=== PATIENT | female | born 1970 | race Native Hawaiian/Other Pacific Islander ===

== ENCOUNTER 2021-08-09 21:29 | Inpatient (IN) | payer SELFPAY ==
[2021-08-09 22:18] LABS: Basophils % (Auto) 0.6 % (0.0-1.8); Eosinophils # (Auto) 0.1 K/mm3 (0.0-0.4); Eosinophils % (Auto) 1.5 % (0.0-4.3); Hematocrit 37.2 % (30.3-42.9); Lymphocytes # (Auto) 3.3 K/mm3 (1.2-5.4); Lymphocytes % (Auto) 42.9 % (13.4-35.0); Mean Corpuscular HGB Conc 32 % (30-34); Mean Corpuscular Volume 91 fl (79-97); Monocytes # (Auto) 0.6 K/mm3 (0.0-0.8); Monocytes % (Auto) 8.3 % (0.0-7.3); Platelet Count 298 K/mm3 (140-440); Red Cell Distribution Width 13.6 % (13.2-15.2)
--- NOTE | 2021-08-09 22:24 | Consultation ---
Medications and Allergies Allergies Allergy/AdvReac Type Severity Reaction Status Date / Time No Known Allergies Allergy Unverified 02/25/14 12:06 Home Medications Medication Instructions Recorded Confirmed Last Taken Type Gabapentin 300 mg PO BID #60 capsule 02/26/14 Unknown Rx Physical Examination - Vital Signs Vital Signs: Vital Signs Temp Pulse Resp BP Pulse Ox 97.9 F 80 20 143/102 98 08/09/21 21:33 08/09/21 21:33 08/09/21 21:33 08/09/21 21:33 08/09/21 21:33 Results - Laboratory Findings CBC and BMP: 08/09/21 22:02 Abnormal Lab Findings: Abnormal Labs 08/09/21 22:02 Lymph % (Auto) 42.9 H [place] % (Auto) 8.3 H Assessment and Plan [place] [facility] Consult Note # Demographics Consult Type: Acute Stroke Level 1 (0-4.5 hrs) Patient Location: Emergency Room First Name: Sury Last Name: Jer Date of : 1970 Age: 50 Gender: Female Facility: [facility] Time of Initial Page (Eastern Time): 08/09/2021, 21:34 Time of Return Call (Eastern Time): 08/09/2021, 21:38 # HPI Chief Complaint: numbness weakness (focal) Handedness: Right History: Left-sided weakness and numbness starting at 17:00. Hisotry of stroke, HTN, diverticulitis. History of stroke 10 years ago. Last Known Normal: I have collected independent history specific to time last normal or last known well. We have collaborated with the provider and at this time, we have the most current timeline with the information that is available. 1700 Possible Thrombolytic candidate: not on warfarin or NOACs no intracranial hemorrhage history no recent major surgery no known active major internal bleeding no known blood disorders # Scores Time of exam and NIHSS ( Time): 08/09/2021, 21:45 Level of Consciousness 1a: [0] = Alert; keenly responsive LOC Questions 1b: [0] = Answers both questions correctly LOC Commands 1c: [0] = Performs both tasks correctly Best Gaze 2: [0] = Normal Visual 3: [0] = No visual loss Facial Palsy 4: [1] = Minor paralysis Motor Arm Left 5a: [1] = Drift Motor Arm Right 5b: [0] = No drift Motor Leg Left 6a: [0] = No drift Motor Leg Right 6b: [0] = No drift Limb Ataxia 7: [0] = Absent Sensory 8: [1] = [id number] sensory loss Best Language 9: [0] = No aphasia Dysarthria 10: [0] = Normal Extinction and Inattention 11: [0] = No abnormality NIHSS Total: 3 # PMH-FH-SH Medications: Amlodipine, Bisoprolol # Assessment Impression: Ischemic Stroke (Acute) Left-sided weakness and numbness consistent with acute stroke. # Plan Thrombolytic/Intervention: NOT IV Thrombolysis or IA Intervention candidate Thrombolytic Exclusion: > 4.5 hours Intraarterial Exclusion: other CTA pending, call back if abnormal Target Blood Pressure: SBP < 220 Labs: hemoglobin A1c lipid panel Imaging: (urgency: STAT): CT Angiogram Head and CT Angiogram Neck AND call back with results if abnormal Imaging: (urgency: routine): MRI Brain with AND without contrast Diagnostic Test: echo with bubble study Therapy/Evaluation: NPO until swallow evaluation PT/OT evaluation speech/swallow consultation Medication: clopidogrel (Plavix) 75 mg daily (trial of Plavix due to ASA intolerence) DVT Prophylaxis: SCD chemical DVT prophylaxis Other: LDL < 70 permissive hypertension telemetry monitoring I have discussed my recommendations with the referring provider Additional Recommendations: Trial of Plavix given aspirin intolerance Disposition: admit # Logistics Telemedicine: Interactive 2 way audio and visual telecommunication technology was utilized during this visit
[2021-08-09 22:28] LABS: INR 1.02 (0.87-1.13)
[2021-08-09] MEDS ORDERED: SODIUM CHLORIDE 0.9% 1000 ML 1,000 ML IV ONE (22:28)
[2021-08-09 22:29] LABS: Partial Thromboplastin Time 28.7 Sec. (24.2-36.6); Thrombin Time 18.6 Sec. (15.1-19.6)
--- NOTE | 2021-08-09 22:29 | Emergency Department Report ---
HPI - General Chief Complaint: Neuro Symptoms/Deficit Time Seen by Provider: 08/09/21 21:39 - HPI HPI: 50-year-old female with past medical history significant for hypertension, history of diverticulitis, and prior CVA 10 years ago with no residual deficits presents complaining of left-sided numbness, weakness, as well as left-sided pain which started at 5 PM but worsened over the past 2 hours. According to the patient, she says that for the past week she has been experiencing left-sided abdominal pain, nausea, generalized malaise and some intermittent chest pain lasting 1 to 2 minutes at a time. She was last known well at 5 PM, after which she was noted to have weakness and worsening pain of the entire left side of her body and face. This worsened over the past 2 hours which prompted her to come to the emergency department. There are no known aggravating or alleviating factors. She has not taken anything for her symptoms. At present she reports generalized weakness, malaise, and L-sided abdominal pain in addition to the neurologic symptoms. She does say that the vision in her left eye seems slightly blurry. She denies fever/chills, chest pain, shortness of breath, cough, melena, dysuria, discharge, rash, or any other symptoms or complaints. ED Past Medical Hx - Past Medical History Hx Hypertension: Yes Hx CVA: Yes Additional medical history: Right side weakness from previous cva. - Social History Smoking Status: Never Smoker - Medications Home Medications: Home Medications Medication Instructions Recorded Confirmed Last Taken Type Gabapentin 300 mg PO BID #60 capsule 02/26/14 Unknown Rx ED Review of Systems ROS: Stated complaint: Left Sided Weakness Other details as noted in HPI Constitutional: malaise, weakness. denies: chills, fever Eyes: vision change. denies: eye pain ENT: denies: throat pain, congestion Respiratory: denies: cough, shortness of breath Cardiovascular: chest pain. denies: palpitations, syncope Gastrointestinal: abdominal pain, nausea, diarrhea. denies: vomiting, melena Genitourinary: denies: dysuria, frequency Musculoskeletal: denies: back pain, joint swelling Skin: denies: rash, lesions Neurological: weakness, numbness. denies: headache, confusion Psychiatric: denies: anxiety, depression Physical Exam - Physical Exam Vital Signs: Vital Signs 12/02/21 21:33 Temperature 97.9 F Pulse Rate 80 Respiratory 20 Rate Blood Pressure 143/102 [Left] O2 Sat by Pulse 98 Oximetry Physical Exam: GENERAL: Well developed and well nourished. No acute distress HEAD: Normocephalic. No obvious signs of trauma. ENT: Dry mucous membranes. EYES: Extraocular movements are intact. Pupils are equal round and reactive to light bilaterally NECK: Supple. Full ROM is intact. Trachea is midline. LUNGS: Nonlabored breathing. Equal chest rise bilaterally. Clear to auscultation bilaterally. CARDIOVASCULAR: Regular rate and rhythm. No murmurs or rubs. VASCULAR: Cap refill < 2 seconds ABDOMEN: Abdomen is soft and nondistended. There is tenderness of the left upper and lower quadrants of the abdomen without guarding or rebound tenderness. SKIN: Skin is warm and dry NEURO: Patient is awake, alert, and oriented. There is left-sided facial droop involving the lower aspects of the face without involvement of the upper aspects, otherwise cranial nerves are intact. There is decreased sensation to light touch noted throughout the entire left side of the body and face. There is weakness of the left upper and lower extremities but no drift on exam. Normal speech. NIHSS 2 MUSCULOSKELETAL: No obvious deformities. No significant tenderness. Normal ROM t hroughout. BACK/SPINE: No midline tenderness or step-offs of the C/T/L spine. No costovertebral angle tenderness. ED Course Vital Signs 08/09/21 21:33 Temperature 97.9 F Pulse Rate 80 Respiratory 20 Rate Blood Pressure 143/102 [Left] O2 Sat by Pulse 98 Oximetry ED Medical Decision Making - Lab Data Result diagrams: 08/09/21 22:02 08/09/21 22:02 - EKG Data -: EKG Interpreted by Ne - EKG Data 08/09/21 22:57 Normal sinus rhythm. Normal axis. Normal intervals. No ectopy. No significant ST segment or T wave abnormalities. - Medical Decision Making 50-year-old female with history of stroke and prior diverticulitis presenting with acute onset left-sided facial weakness as well as left-sided numbness of the entire body and left-sided weakness of the body as well. She is also experiencing pain of the left side of her body. Last known normal time was at 5 PM today. In addition she has been experiencing 1 week of intermittent chest pain and left-sided abdominal pain as well as malaise and generalized weakness. On initial assessment she is afebrile and with normal vital signs other than elevated blood pressure. Physical examination reveals dry mucous membranes. There is left-sided facial droop involving the lower aspects of the face. There is decreased sensation to the light touch noted to the entire left side of the face and body. There is weakness of the left upper and lower extremities but no drift. There is also tenderness to palpation of the left upper and lower quadrants of the abdomen without guarding or rebound. Stroke alert was ini tiated and ordered including Noncon CT of the head and CT angiogram of the head and neck. We will also obtain CT of the abdomen as well as further cardiovascular work-up. We will give 1 L of IV fluids for now and continue to monitor very closely. On repeat assessment at 10:27 PM, the patient is noted to have significant improvement of her left facial droop and of her numbness/weakness throughout. We will continue to monitor closely. At 10:46 PM I received a call from radiology who reports that Noncon CT of the head as well as CT angio of the head and neck are negative for any acute abnorm alities. I spoke with Dr. Mccormack of teleneurology regarding the case and he recommends administration of Plavix 75 mg and admission for MRI. Chest x-ray reveals no acute abnormalities. Labs reveal no significant leukocytosis or anemia. There are no significant electrolyte abnormalities and kidney functions within normal limits although BUN is slightly elevated consistent with dehydration. Initial troponin is negative. CT of the abdomen pelvis reveals no acute abnormalities. All the findings were discussed with the patient including the need for admission for further work-up and management given the patient's acute neurologic deficits. The patient expressed understanding and agreement with the plan of care. At 11:37 PM I spoke with Dr. Colin, the on-call hospitalist regarding the case. He accepts patient for admission and will assume care. Critical Care Time: Yes Critical care time in (mins) excluding proc time.: 35 Critical care attestation.: If time is entered above; I have spent that time in minutes in the direct care of this critically ill patient, excluding procedure time. Critical care time was spent in the evaluation/assessment, work-up, and management of acute stroke requiring stroke alert and discussion with multiple other providers as well as frequent reevaluation and reassessment. ED Disposition Clinical Impression: Stroke, Chest pain, Left sided abdominal pain, Dehydration Disposition: 09 ADMITTED INPATIENT Is pt being admited?: Yes Condition: Stable - Assessment Assessment Interval: Baseline - Level of Consciousness 1a. Level of Consciousness: alert/keenly responsive - LOC Questions 1b. LOC Questions: answers both correctly - LOC Command 1c. LOC Commands: performs tasks correctly - Best Gaze 2. Best Gaze: normal - Visual 3. Visual: no visual loss - Facial Palsy 4. Facial Palsy: minor paralysis - Motor Arm 5a. Motor Arm Left: no drift 5b. Motor Arm Right: no drift - Motor Leg 6a. Motor Leg Left: no drift 6b. Motor Leg Right: no drift - Limb Ataxia 7. Limb Ataxia: absent - Sensory 8. Sensory: mild/moderate sensory loss - Best Language 9. Best Language: no aphasia - Dysarthria 10. Dysarthria: normal - Extinction and Inattention 11. Extinction/Inattention: no abnormality - Scoring Total Score: 2 Stroke Severity: Minor Stroke
[2021-08-09 22:38] LABS: Alanine Aminotransferase 15 units/L (7-56); Albumin 3.6 g/dL (3.9-5); Blood Urea Nitrogen 19 mg/dL (7-17); Calcium 8.4 mg/dL (8.4-10.2); Hemolysis Index 10
--- NOTE | 2021-08-09 22:41 | XRay Report ---
CHEST 1 VIEW 08/09/2021 10:17 PM INDICATION / CLINICAL INFORMATION: Stroke. Left sided weakness and numbness. COMPARISON: None available. FINDINGS: SUPPORT DEVICES: None. HEART / MEDIASTINUM: The heart size and pulmonary vasculature are normal. The aorta is normal in [place]. LUNGS / PLEURA: No significant pulmonary or pleural abnormality. No pneumothorax. ADDITIONAL FINDINGS: There is mild elevation of the right hemidiaphragm laterally. IMPRESSION: No acute findings. Signer Name: Fernando Mcintyre MD Signed: 08/09/2021 10:37 PM Workstation Name: [id number]
--- NOTE | 2021-08-09 22:49 | Cat Scan Report ---
CT angio head, CT angio neck, CT head/brain wo con HISTORY:stroke COMPARISON: None. TECHNIQUE: CT of the head. CTA of the neck and head is performed after IV contrast. 3-D/MIP reformats were postprocessed. Percentage stenosis is determined by direct quantitative measurements of diseas ed internal carotid artery diameter compared with normal distal internal carotid artery reference seg ments or by criteria similar to NASCET where applicable. All CT scans at this location are performed using CT dose reduction for ALARA by means of automated exposure control. FINDINGS: CT HEAD: Intracranial: Rent[place]-white matter differentiation is maintained. No intracranial hemorrhage. No extra a xial collection.. No hydrocephalus. No herniation. Sinuses: Paranasal sinuses and mastoid air cells are essentially clear. Orbits: Globes are intact. Calvarium: No acute fracture. CTA NECK: Aortic arch: No significant abnormality. Cervical vertebral arteries: No occlusion or hemodynamically significant stenosis. Common Carotid arteries: No occlusion or hemodynamically significant stenosis. Internal carotid arteries: No occlusion or hemodynamically significant stenosis. CTA HEAD: Intracranial vertebral arteries: No occlusion or significant stenosis. Basilar artery: No occlusion or significant stenosis. Posterior cerebral arteries: No occlusion or significant stenosis. Intracranial internal carotid arteries: No occlusion or significant stenosis. Anterior cerebral arteries: No occlusion or significant stenosis. Middle cerebral arteries: No occlusion or significant stenosis. No aneurysm. Additional findings: None. IMPRESSION: 1. CT HEAD: No acute infarction. 2. CTA NECK: No occlusion or significant stenosis of the carotid or vertebral arteries. 3. CTA HEAD: No occlusion or significant stenosis of the major intracranial vasculature. Signer Name: Matthias Lopez MD Signed: 08/09/2021 10:44 PM Workstation Name: [id number]
[2021-08-09 22:54] LABS: BUN/Creatinine Ratio 27; Bilirubin,Direct < 0.2 mg/dL (0-0.2)
[2021-08-09] MEDS ORDERED: CLOPIDOGREL 75 MG TAB PO ONE (22:56)
--- NOTE | 2021-08-09 23:25 | Cat Scan Report ---
CT OF THE ABDOMEN AND PELVIS WITHOUT CONTRAST INDICATION / CLINICAL INFORMATION: Left abdominal tenderness. TECHNIQUE: All CT scans at this location are performed using CT dose reduction for ALARA by means of automated exposure control. COMPARISON: None available. FINDINGS: ABDOMEN: There is contrast in the urinary tract from an earlier CTA of the head and neck. The liver, spleen, gallbladder, bile ducts and pancreas, adrenal glands, kidneys and bowel demonstrate no signif icant abnormality. No vascular abnormality is seen. There is no evidence of adenopathy. The lung base s are clear. PELVIS: The distal ureters and urinary bladder are normal. The uterus and adnexal regions are unremar kable. No abnormal mass or fluid collection is seen. The appendix is not seen. There are scattered le ft colonic diverticula without acute inflammation. I do not identify a hernia. There is mild spondylo sis without acute osseous abnormality. IMPRESSION: No acute abnormality is identified. Signer Name: Fernando Mcintyre MD Signed: 08/09/2021 11:20 PM Workstation Name: [id number]
[2021-08-10] MEDS ORDERED: ALBUTEROL 2.5 MG/3 ML NEBU IH PRN (00:18)
[2021-08-10] MEDS ORDERED: ONDANSETRON 4 MG/2 ML INJ IV PRN (00:18)
[2021-08-10] MEDS ORDERED: HYDROmorphone 1 MG/1 ML INJ IV PRN (00:18)
--- NOTE | 2021-08-10 00:30 | History and Physical Report ---
History of Present Illness Date of examination: 08/10/21 Date of admission: 08/10/21 Chief complaint: Stroke like symptoms History of present illness: 50-year-old female with history of prior CVA, hypertension and diverticulitis was brought to the emergency room because of left-sided numbness, weakness, as well as left-sided pain which started at 5 PM but worsened over the past 2 hours. According to the patient, she says that for the past week she has been experiencing left-sided abdominal pain, nausea, generalized malaise and some intermittent chest pain lasting 1 to 2 minutes at a time. She was last known well at 5 PM, after which she was noted to have weakness and worsening pain of the entire left side of her body and face. This worsened over the past 2 hours which prompted her to come to the emergency department. At present she reports generalized weakness, malaise, and L-sided abdominal pain in addition to the neurologic symptoms. She does say that the vision in her left eye seems slightly blurry. She denies fever/chills, chest pain, shortness of breath, cough, melena, dysuria, discharge, rash, or any other symptoms or complaints. Initial CT scan of the head shows no acute intracranial abnormality. Patient was seen and evaluated by telemetry neurology.'s were going to admit the patient we will put the patient on CVA pathway. We consult neurology for evaluation also order MRI MRA MRI of the brain Past History Past Medical History: hypertension, stroke, other (Diverticulitis) Medications and Allergies Allergies Allergy/AdvReac Type Severity Reaction Status Date / Time No Known Allergies Allergy Unverified 02/25/14 12:06 Home Medications Medication Instructions Recorded Confirmed Last Taken Type Gabapentin 300 mg PO BID #60 capsule 02/26/14 Unknown Rx Review of Systems All systems: negative Constitutional: weakness, malaise Eyes: bilateral: blurred vision Gastrointestinal: abdominal pain, nausea, diarrhea Neurological: weakness, numbness Exam - Constitutional Vitals: Temp Pulse Resp BP Pulse Ox 98 F 71 20 143/91 98 08/09/21 22:00 08/09/21 22:00 08/09/21 22:00 08/09/21 22:00 08/09/21 22:00 General appearance: Present: no acute distress, well-nourished - EENT Eyes: Present: PERRL ENT: hearing intact, clear oral mucosa - Neck Neck: Present: supple, normal ROM - Respiratory Respiratory effort: normal Respiratory: bilateral: CTA - Cardiovascular Heart Sounds: Present: S1 & S2. Absent: rub, click - Extremities Extremities: pulses symmetrical, No edema Peripheral Pulses: within normal limits - Abdominal General gastrointestinal: Present: soft, non-tender, non-distended, normal bowel sounds Female genitourinary: Present: normal - Integumentary Integumentary: Present: clear, warm, dry - Musculoskeletal Musculoskeletal: gait normal, strength equal bilaterally - Psychiatric Psychiatric: appropriate mood/affect, intact judgment & insight - Neurologic Neurologic: moves all extremities, other (Patient is awake, alert, and oriented. There is left-sided facial droop involving the lower aspects of the face without involvement of the upper aspects, otherwise cranial nerves are intact. There is decreased sensation to light touch noted throughout the entire left side of the body and face. Th) HEART Score - HEART Score Troponin: Troponin T < 0.010 ng/mL (0.00-0.029) 08/09/21 22: Results - Labs CBC & Chem 7: 08/09/21 22:02 08/09/21 22:02 Labs: Laboratory Last Values WBC 7.7 K/mm3 (4.5-11.0) 08/09/21 22: RBC 4.10 M/mm3 (3.65-5.03) 08/09/21 22: Hgb 12.0 gm/dl (10.1-14.3) 08/09/21 22: Hct 37.2 % (30.3-42.9) 08/09/21 22: MCV 91 fl (79-97) 08/09/21 22: MCH 29 pg (28-32) 08/09/21 22: MCHC 32 % (30-34) 08/09/21 22: RDW 13.6 % (13.2-15.2) 08/09/21 22: Plt Count 298 K/mm3 (140-440) 08/09/21 22: Lymph % (Auto) 42.9 % (13.4-35.0) H 08/09/21 22: [place] % (Auto) 8.3 % (0.0-7.3) H 08/09/21 22:02 Eos % (Auto) 1.5 % (0.0-4.3) 08/09/21 22:02 Baso % (Auto) 0.6 % (0.0-1.8) 08/09/21 22:02 Lymph # (Auto) 3.3 K/mm3 (1.2-5.4) 08/09/21 22:02 [place] # (Auto) 0.6 K/mm3 (0.0-0.8) 08/09/21 22:02 Eos # (Auto) 0.1 K/mm3 (0.0-0.4) 08/09/21 22:02 Baso # (Auto) 0.0 K/mm3 (0.0-0.1) 08/09/21 22:02 Seg Neutrophils % 46.7 % (40.0-70.0) 08/09/21 22:02 Seg Neutrophils # 3.6 K/mm3 (1.8-7.7) 08/09/21 22:02 PT 14.5 Sec. (12.2-14.9) 08/09/21 22:02 INR 1.02 (0.87-1.13) 08/09/21 22:02 APTT 28.7 Sec. (24.2-36.6) 08/09/21 22:02 Thrombin Time 18.6 Sec. (15.1-19.6) 08/09/21 22:02 Sodium 136 mmol/L (137-145) L 08/09/21 22:02 Potassium 4.2 mmol/L (3.6-5.0) 08/09/21 22:02 Chloride 105.5 mmol/L (98-107) 08/09/21 22:02 Carbon Dioxide 21 mmol/L (22-30) L 08/09/21 22:02 Anion Gap 14 mmol/L 08/09/21 22:02 BUN 19 mg/dL (7-17) H 08/09/21 22:02 Creatinine 0.7 mg/dL (0.6-1.2) 08/09/21 22:02 Estimated GFR > 60 ml/min 08/09/21 22:02 BUN/Creatinine Ratio 27 % 08/09/21 22:02 Glucose 92 mg/dL (65-100) 08/09/21 22:02 POC Glucose 82 mg/dL (70-105) 08/09/21 22:16 Calcium 8.4 mg/dL (8.4-10.2) 08/09/21 22:02 Magnesium 2.10 mg/dL (1.7-2.3) 08/09/21 22:02 Total Bilirubin 0.20 mg/dL (0.1-1.2) 08/09/21 22:02 Direct Bilirubin < 0.2 mg/dL (0-0.2) 08/09/21 22:02 Indirect Bilirubin 0.0 mg/dL 08/09/21 22:02 AST 16 units/L (5-40) 08/09/21 22:02 ALT 15 units/L (7-56) 08/09/21 22:02 Alkaline Phosphatase 70 units/L (35-129) 08/09/21 22:02 Ammonia 41.0 umol/L (25-60) 08/09/21 22:02 Troponin T < 0.010 ng/mL (0.00-0.029) 08/09/21 22:02 Total Protein 6.5 g/dL (6.3-8.2) 08/09/21 22:02 Albumin 3.6 g/dL (3.9-5) L 08/09/21 22:02 Albumin/Globulin Ratio 1.2 % 08/09/21 22:02 TSH 2.020 mlU/mL (0.270-4.200) 08/09/21 22:02 Salicylates < 0.3 mg/dL (2.8-20.0) L 08/09/21 22:02 Acetaminophen 5.0 ug/mL (10.0-30.0) L 08/09/21 22:02 Plasma/Serum Alcohol < 0.01 % (0-0.07) 08/09/21 22:02 Microbiology: Microbiology 08/09/21 22:11 Peripheral/Venous Blood Culture - Preliminary Culture in Progress 08/09/21 22:02 Peripheral/Venous Blood Culture - Preliminary Culture in Progress - Imaging and Cardiology CT Scan - head: report reviewed Assessment and Plan VTE prophylaxis?: Chemical Plan of care discussed with patient/family: Yes - Patient Problems (1) Stroke Current Visit: Yes Status: Acute Plan to address problem: Admit the patient to the medical telemetry. Aspirin 325 mg p.o. daily. Lipitor 80 mg p.o. daily. MRI of the brain with and without contrast MRI of the brain and neck with and without contrast. PT OT any speech evaluation. Neurology consult. Echocardiogram (2) Left sided abdominal pain Current Visit: Yes Status: Acute Plan to address problem: NPO. D5 normal saline at the rate of 100 cc/h. Pepcid 20 mg IV every 12 hours. Zofran 4 mg IV every 6 hours as needed (3) HTN (hypertension) Current Visit: No Status: Chronic Plan to address problem: Hydralazine 10 mg IV every 6 hours as needed. We continue the home medication we will monitor the blood pressure closely (4) DVT prophylaxis Current Visit: No Status: Acute Plan to address problem: Heparin 5000 units subcu every 12 hours for the DVT prophylaxis. Pepcid 20 mg IV every 12 hours for GI prophylaxis. Patient is a full code
[2021-08-10] MEDS ORDERED: D5W/0.9% NACL 1,000 ML IV SCH (01:00)
[2021-08-10 02:24] LABS: Chol/HDL Ratio 3.14 %
[2021-08-10] MEDS: ACETAMINOPHEN 325 MG TAB PO PRN (06:36)
--- NOTE | 2021-08-10 09:29 | Consultation ---
History of Present Illness Consult date: 08/10/21 Reason for Consult: New onset left side weakness/ numbness History of present illness: Stroke like symptoms History of present illness: 50-year-old female with history of prior CVA, hypertension and diverticulitis was brought to the emergency room because of left-sided numbness, weakness, as well as left-sided pain which started at 5 PM but worsened over the past 2 hours. According to the patient, she says that for the past week she has been experiencing left-sided abdominal pain, nausea, generalized malaise and some intermittent chest pain lasting 1 to 2 minutes at a time. She was last known well at 5 PM, after which she was noted to have weakness and worsening pain of the entire left side of her body and face. This worsened over the past 2 hours which prompted her to come to the emergency department. At present she reports generalized weakness, malaise, and L-sided abdominal pain in addition to the neurologic symptoms. She does say that the vision in her left eye seems slightly blurry. She denies fever/chills, chest pain, shortness of breath, cough, melena, dysuria, discharge, rash, or any other symptoms or complaints. Initial CT scan of the head shows no acute intracranial abnormality. Patient was seen and evaluated by telemetry neurology.'s were going to admit the patient we will put the patient on CVA pathway. pt. today still complains of left side numbness , according to family pt. can not take ASA due to diverticulitis and peptic ulcer pt, speak no palestinian communication was made through her daughter on the phone CT brain/CTA brain and neck are unremarkable MRI brain and intra cranial MRI initially are unremarkable official report is pending CT abd. and pelvis is unremarkable Past History Past Medical History: hypertension, stroke, other (Diverticulitis) Medications and Allergies Allergies Allergy/AdvReac Type Severity Reaction Status Date / Time No Known Allergies Allergy Unverified 02/25/14 12:06 Home Medications Medication Instructions Recorded Confirmed Last Taken Type Gabapentin 300 mg PO BID #60 capsule 02/26/14 Unknown Rx Review of Systems All systems: negative Constitutional: weakness, malaise Eyes: bilateral: blurred vision Gastrointestinal: abdominal pain, nausea, diarrhea Neurological: weakness, numbness Past History Past Medical History: hypertension, stroke, other (Diverticulitis) Medications and Allergies Allergies Allergy/AdvReac Type Severity Reaction Status Date / Time No Known Allergies Allergy Verified 08/10/21 10:10 Home Medications Medication Instructions Recorded Confirmed Last Taken Type Bisoprolol Fumarate 5 mg PO QDAY 08/10/21 08/10/21 08/09/21 History amLODIPine 10 mg PO QDAY 08/10/21 08/10/21 08/09/21 History Active Meds: Active Medications Acetaminophen (Acetaminophen 325 Mg Tab) 650 mg PO Q4H PRN PRN Reason: Pain MILD(1-3)/Fever >100.5/ROCHA Last Admin: 08/10/21 06:36 Dose: 650 mg Documented by: Albuterol (Albuterol 2.5 Mg/3 Ml Nebu) 2.5 mg IH Q4HRT PRN PRN Reason: Shortness Of Breath Albuterol/Ipratropium (Ipratropium/Albuterol Sulfate 3 Ml Ampul.Neb) 1 ampul IH Q6HRT BRANDON Aspirin (Aspirin 325 Mg Tab) 325 mg PO QDAY BRANDON Atorvastatin Calcium (Atorvastatin 40 Mg Tab) 80 mg PO QHS BRANDON Famotidine (Famotidine 20 Mg/2 Ml Inj) 20 mg IV BID [facility] Heparin Sodium (Porcine) (Heparin 5,000 Unit/1 Ml Vial) 5,000 unit SUB-Q Q12HR BRANDON Hydromorphone HCl (Hydromorphone 1 Mg/1 Ml Inj) 0.5 mg IV Q3H PRN PRN Reason: Pain , Severe (7-10) Dextrose/Sodium Chloride (D5ns) 1,000 mls @ 100 mls/hr IV DIRECT BRANDON Morphine Sulfate (Morphine 2 Mg/1 Ml Inj) 2 mg IV Q4H PRN PRN Reason: Pain, Moderate (4-6) Ondansetron HCl (Ondansetron 4 Mg/2 Ml Inj) 4 mg IV Q8H PRN PRN Reason: Nausea And Vomiting Sodium Chloride (Sodium Chloride 0.9% 10 Ml Flush Syringe) 10 ml IV BID BRANDON Sodium Chloride (Sodium Chloride 0.9% 10 Ml Flush Syringe) 10 ml IV PRN PRN PRN Reason: LINE FLUSH Physical Examination - Vital Signs Vital Signs: Vital Signs Temp Pulse Resp BP Pulse Ox 97.9 F 80 20 143/102 98 08/09/21 21:33 08/09/21 21:33 08/09/21 21:33 08/09/21 21:33 08/09/21 21:33 - Constitutional General appearance: comfortable - EENT EENT: Present: PERRL, mucous membranes moist - Respiratory Respiratory: Present: chest non-tender, lungs clear, rhonchi - Cardiovascular Cardiovascular: Present: regular rate, normal S1, normal S2 Extremities: Present: no peripheral edema bilatateraly, no clubbing, cyanosis - Gastrointestinal Gastrointestinal: Present: normoactive bowel sounds - Integumentary Integumentary: Present: normal - Neurologic Cranial nerve examination: PERRL, EOMI, facial droop, other (slight left facial asymmetry and subjective left sensory impairment ,no visual field deficit ) Speech examination: intact Sensorimotor examination: intact Detailed motor examination: grossly full strength in, other (with subjective left sensory impairment upper and lower, gait not done) - Level of Consciousness 1a. Level of Consciousness: alert/keenly responsive - LOC Questions 1b. LOC Questions: answers both correctly - LOC Command 1c. LOC Commands: performs tasks correctly - Best Gaze 2. Best Gaze: normal - Visual 3. Visual: no visual loss - Facial Palsy 4. Facial Palsy: minor paralysis - Motor Arm 5a. Motor Arm Left: no drift 5b. Motor Arm Right: no drift - Motor Leg 6a. Motor Leg Left: no drift 6b. Motor Leg Right: no drift - Limb Ataxia 7. Limb Ataxia: absent - Sensory 8. Sensory: mild/moderate sensory loss - Best Language 9. Best Language: no aphasia - Dysarthria 10. Dysarthria: normal - Extinction and Inattention 11. Extinction/Inattention: no abnormality - Scoring Total Score: 2 Stroke Severity: Minor Stroke Results - Laboratory Findings CBC and BMP: 08/09/21 22:02 08/09/21 22:02 Abnormal Lab Findings: Abnormal Labs 08/09/21 08/09/21 08/09/21 22:02 22:02 22:02 Lymph % (Auto) 42.9 H [place] % (Auto) 8.3 H Sodium 136 L Carbon Dioxide 21 L BUN 19 H Albumin 3.6 L Salicylates < 0.3 L Acetaminophen 08/09/21 22:02 Lymph % (Auto) [place] % (Auto) Sodium Carbon Dioxide BUN Albumin Salicylates Acetaminophen 5.0 L Assessment and Plan Assessment and Plan 50-year-old female with history of prior CVA, hypertension and diverticulitis was brought to the emergency room because of left-sided numbness, weakness, as well as left-sided pain which started at 5 PM but worsened over the past 2 hours. she is initially with NIH#3 - Patient Problems # New onset left side numbness and or weakness R/O Stroke - exam today is with slight left facial droop and subjective left sensory impairment no significant weakness ,NIH#2 -CT brain and CTA brain and neck are unremarkable -MRI brain and MRA -- pending -suggest MRI with gd r/o demylinating disease !!! -ESR ,ZIYAD -baby ASA and liptor 40 mg -ECHO -cardiac monitering -PT/ST # Left sided abdominal pain -NPO. D5 normal saline at the rate of 100 cc/h. Pepcid 20 mg IV every 12 hours. Zofran 4 mg IV every 6 hours as needed -CT abd. and Pelvis are unremarkable. # HTN (hypertension) -Hydralazine 10 mg IV every 6 hours as needed. We continue the home medication we will monitor the blood pressure closely # DVT prophylaxis -Heparin 5000 units subcu every 12 hours for the DVT prophylaxis. Pepcid 20 mg IV every 12 hours for GI prophylaxis. Patient is a full code will follow
[2021-08-10] MEDS: IPRATROPIUM/ALBUTEROL SULFATE 3 ML AMPUL.NEB IH SCH ×3 (09:48→20:48)
[2021-08-10] MEDS ORDERED: ASPIRIN 325 MG TAB PO SCH (10:00)
[2021-08-10] MEDS: HEPARIN 5,000 UNIT/1 ML VIAL SUB-Q SCH ×2 (11:13→21:50)
[2021-08-10] MEDS: FAMOTIDINE 20 MG/2 ML INJ IV SCH ×3 (11:13→21:50)
--- NOTE | 2021-08-10 12:16 | Electrocardiograph Report ---
[facility] Test Date: 2021-08-09 Test Time: 22:28:31 Pat Name: MAYRA MARSHALL Department: Room: [place] [address] Gender: F Testing Analyst: EVA : 1970 Requested By: ABNER AVINA Order Number: [id number] Reading MD: Johnathan Wilson Measurements Intervals [place] Rate: 61 P: 59 OR: 137 QRS: 3 QRSD: 117 T: 15 QT: 444 QTc: 446 Interpretive Statements Sinus rhythm Nonspecific intraventricular conduction delay Low voltage, precordial leads No previous ECG available for comparison Electronically Signed On 08-10-2021 12:15:56 EST by Johnathan Wilson
--- NOTE | 2021-08-10 13:21 | Magnetic Resonance Report ---
. MR brain wo con INDICATION / CLINICAL INFORMATION: 50 years Female; stroke, LT SIDED WEAKNESS. TECHNIQUE: Multiplanar, multisequence MR images of the brain were obtained. COMPARISON: 02/26/2014 FINDINGS: BRAIN / INTRACRANIAL CONTENTS: No acute hemorrhage, mass effect, midline shift, hydrocephalus, or acu te, large territorial infarct. No chronic infarct or atrophy. No significant white matter abnormality . CRANIOCERVICAL JUNCTION: No significant abnormality. VASCULAR FLOW-VOIDS: No significant abnormality. ORBITS: No significant abnormality of visualized orbits. SINUSES / MASTOIDS: Mild mucosal thickening in the ethmoids. ADDITIONAL FINDINGS: None. IMPRESSION: 1. No focal mass, hemorrhage, hydrocephalus, or acute ischemia. Signer Name: Carlos Weeks MD, III Signed: 08/10/2021 1:17 PM Workstation Name: [id number]
--- NOTE | 2021-08-10 13:26 | Magnetic Resonance Report ---
. MR MRA/MRV head wo con INDICATION / CLINICAL INFORMATION: 50 years Female; stroke, LT SIDED WEAKNESS. TECHNIQUE: 3-D time of flight. NASCET type criteria used to evaluate stenoses. COMPARISON: None available. FINDINGS: INTERNAL CAROTID ARTERIES: Focal areas of mild narrowing are suggested in both internal carotid arter ies. VERTEBROBASILAR SYSTEM: No significant narrowing appreciated. DISTAL BRANCHES: Distal branches of the anterior, middle, and posterior cerebral arteries are fairly symmetric in appearance and number. ANEURYSM: None identified. IMPRESSION: No dominant stenosis on this MRA of the brain. Signer Name: Carlos Weeks MD, III Signed: 08/10/2021 1:22 PM Workstation Name: [id number]
--- NOTE | 2021-08-10 13:36 | Event Note ---
Date: 08/10/21 The patient was seen and evaluated this morning, and she was found to be hemodynamically stable. Cardiology was consulted upon admission, and they recommended medical management. The patient will continue to undergo diuresis, salt restriction, and fluid restriction for management of acute on chronic (presumed systolic) heart failure exacerbation.
--- NOTE | 2021-08-10 13:39 | Event Note ---
Date: 08/10/21 The patient was seen and evaluated this morning, and she was found to be hemodynamically stable. The patient is still undergoing work-up for presumed CVA. Neurology is currently on board. The patient will also be evaluated by physical therapy/Occupational Therapy/speech therapy.
[2021-08-10] MEDS: ASPIRIN 81 MG TAB CHEW PO SCH (14:24)
--- NOTE | 2021-08-10 17:46 | Magnetic Resonance Report ---
MRI BRAIN WITH CONTRAST (performed on 08/10/2021 at about 1444 Eastern standard time) INDICATION / CLINICAL INFORMATION: Left-sided weakness. Evaluate for demyelinating disease. TECHNIQUE: Multiplanar, multisequence MR images of the brain were obtained. Study consisted of T2 FLAIR sequence s obtained in the sagittal and coronal planes and multiplanar postcontrast T1-weighted scans. Contrast: Clairscan: 15 ml, administered intravenously. COMPARISON: MRI brain without contrast 08/10/2021 performed at about 1145 hours Eastern standard time FINDINGS: BRAIN / INTRACRANIAL CONTENTS: Ventricles and cortical sulci are normal in size and configuration. Th ere is no mass effect. No evidence of intracranial hemorrhage or extra-axial fluid collection is seen . No significant areas of abnormal brain parenchymal signal intensity are identified. There is no ind ication of remote cortical infarction. The brainstem and cerebellum have an unremarkable appearance. MIDLINE STRUCTURES:No abnormalities are seen to involve the pituitary gland. Pineal region has an unr emarkable appearance. CRANIOCERVICAL JUNCTION: No abnormalities are identified at the craniocervical junction. VASCULAR FLOW-VOIDS: Normal flow-voids are present within the major intracranial vessels. ORBITS: The orbits have an unremarkable appearance. SINUSES / MASTOIDS: There is no indication of inflammatory disease in the paranasal sinuses or mastoi d air cells. Following the administration of intravenous contrast enhancement of normal vascular structures is dem onstrated. No areas of abnormal contrast enhancement are identified. IMPRESSION: 1. No regions of abnormal contrast enhancement are identified on MRA brain with intravenous contrast. Signer Name: Nazario Ramos MD Signed: 08/10/2021 5:41 PM Workstation Name: [id number]
[2021-08-10] MEDS: MORPHINE 2 MG/1 ML INJ IV PRN (20:17)
[2021-08-11] MEDS: IPRATROPIUM/ALBUTEROL SULFATE 3 ML AMPUL.NEB IH SCH ×4 (01:49→19:53)
[2021-08-11 07:12] LABS: Calcium 8.5 mg/dL (8.4-10.2)
[2021-08-11] MEDS: MORPHINE 2 MG/1 ML INJ IV PRN (07:57)
[2021-08-11] MEDS: FAMOTIDINE 20 MG/2 ML INJ IV SCH ×2 (10:16→22:07)
[2021-08-11] MEDS: HEPARIN 5,000 UNIT/1 ML VIAL SUB-Q SCH ×2 (10:16→22:07)
[2021-08-11] MEDS: ASPIRIN 81 MG TAB CHEW PO SCH (10:16)
[2021-08-11] MEDS ORDERED: FLU VACC QUAD 2021-22(6MOS UP)/PF 60 MCG/0.5 ML SYRINGE IM ONE (12:00)
--- NOTE | 2021-08-11 12:07 | Progress Note ---
Assessment and Plan Assessment and Plan 50-year-old female with history of prior CVA, hypertension and diverticulitis was brought to the emergency room because of left-sided numbness, weakness, as well as left-sided pain which started at 5 PM but worsened over the past 2 hours. she is initially with NIH#3 - Patient Problems # New onset left side numbness and or weakness R/O Stroke - exam today is with slight left facial droop and subjective left sensory impairment no significant weakness ,NIH#2 -Today there is no facial droop but weakness left arm and absent drift !!! -CT brain and CTA brain and neck are unremarkable -MRI brain and MRA --Unremarkable -suggest MRI with gd is unremarkable -ESR ,ZIYAD -baby ASA and liptor 40 mg -ECHO is noted 60-65% EF -cardiac monitering -PT/ST # Left sided abdominal pain -NPO. D5 normal saline at the rate of 100 cc/h. Pepcid 20 mg IV every 12 hours. Zofran 4 mg IV every 6 hours as needed -CT abd. and Pelvis are unremarkable. # HTN (hypertension) -Hydralazine 10 mg IV every 6 hours as needed. We continue the home medication we will monitor the blood pressure closely # DVT prophylaxis -Heparin 5000 units subcu every 12 hours for the DVT prophylaxis. Pepcid 20 mg IV every 12 hours for GI prophylaxis. Patient is a full code Nothing to add suggest Pt evaluate increase activity Assurance -maintain ASA and Lipitor will sign off Subjective Date of service: 08/11/21 Principal diagnosis: pt. is in bed according to her she is feeling better , left side weakness ! Interval history: she had repeat MRI with Gd is unremarkable reflexes are suppressed Bilateral she is with left side weakness but no clear pronator drift Echo is unremarkable Objective - Vital Sign Vital Signs - 12hr 08/11/21 08/11/21 08/11/21 00:12 03:37 07:56 Temperature 98.7 F 97.7 F Pulse Rate 62 59 L 63 Pulse Rate [ Bilateral Throughout] Respiratory 15 18 Rate Respiratory Rate [Bilateral Throughout] Blood Pressure 101/57 120/71 O2 Sat by Pulse 97 96 Oximetry 08/11/21 08/11/21 08/11/21 09:12 10:00 10:46 Temperature 97.7 F Pulse Rate 65 91 H Pulse Rate [ 76 Bilateral Throughout] Respiratory 18 Rate Respiratory 18 Rate [Bilateral Throughout] Blood Pressure 122/70 O2 Sat by Pulse 98 94 Oximetry - General Apperance Constitutional: comfortable - EENT EENT: PERRL - Respiratory Respiratory: chest non-tender, lungs clear, rhonchi - Cardiovascular Cardiovascular: regular rate, normal S1, normal S2 Extremities: no peripheral edema bilat, no clubbing, cyanosis - Gastrointestinal Gastrointestinal: normoactive bowel sounds - Integumentary Integumentary: normal - Neurologic Cranial nerve examination: PERRL, EOMI, intact Speech examination: intact Detailed motor examination: grossly full strength in, other (with slight left side weakness , and numbness ) - Laboratory Findings CBC and BMP: 08/09/21 22:02 08/09/21 22:02 Abnormal Lab Findings: Abnormal Labs 08/09/21 08/09/21 08/09/21 22:02 22:02 22:02 Lymph % (Auto) 42.9 H [place] % (Auto) 8.3 H Sodium 136 L Carbon Dioxide 21 L BUN 19 H Albumin 3.6 L Salicylates < 0.3 L Acetaminophen 08/09/21 22:02 Lymph % (Auto) [place] % (Auto) Sodium Carbon Dioxide BUN Albumin Salicylates Acetaminophen 5.0 L
--- NOTE | 2021-08-11 13:09 | Progress Note ---
Assessment and Plan Assessment and plan: Left-sided weakness and blurry vision. CVA and TIA have been ruled out. Brain MRI with and without contrast negative. Brain MRA negative. CT of the head and neck negative. ESR normal. ZIYAD pending. Echo showed normal EF of 60 to 65% PT/OT/ST evaluation pending. Continue aspirin and Lipitor per neurology's recommendation. Continue telemetry monitoring. Neurologist input appreciated. Left sided abdominal pain Resolved. Continue current analgesic. CT abdomen pelvis unremarkable. Continue current diet. HTN (hypertension) Controlled without medication. Continue monitoring on as needed IV hydralazine. DVT prophylaxis On subcu heparin. Disposition Plan: Pending PT/OT evaluation. Possible discharge home tomorrow. History Interval history: Still left-sided weakness which has slightly improved and left blurry vision. She speaks Indonesian and her cousin who is a staff in the hospital translated. Hospitalist Physical - Constitutional Vitals: Temp Pulse Resp BP Pulse Ox 97.7 F 91 H 18 122/70 94 08/11/21 10:46 08/11/21 10:46 08/11/21 10:46 08/11/21 10:46 08/11/21 10:46 General appearance: Present: no acute distress, well-nourished - EENT Eyes: Present: PERRL, EOM intact ENT: hearing intact, clear oral mucosa - Neck Neck: Present: supple, normal ROM - Respiratory Respiratory effort: normal - Cardiovascular Rhythm: regular Heart Sounds: Present: S1 & S2 - Extremities Extremities: no ischemia, No edema, Full ROM - Abdominal General gastrointestinal: soft, non-tender, non-distended, normal bowel sounds - Integumentary Integumentary: Present: warm, dry - Psychiatric Psychiatric: appropriate mood/affect - Neurologic Neurologic: CNII-XII intact, focal deficits (Strength 4/5 in left lower extremity.), moves all extremities HEART Score - HEART Score Troponin: Troponin T < 0.010 ng/mL (0.00-0.029) 08/10/21 00:27 Results - Labs CBC & Chem 7: 08/09/21 22:02 08/09/21 22:02 Labs: Laboratory Last Values WBC 7.7 K/mm3 (4.5-11.0) 08/09/21 22:02 RBC 4.10 M/mm3 (3.65-5.03) 08/09/21 22:02 Hgb 12.0 gm/dl (10.1-14.3) 08/09/21 22:02 Hct 37.2 % (30.3-42.9) 08/09/21 22:02 MCV 91 fl (79-97) 08/09/21 22:02 MCH 29 pg (28-32) 08/09/21 22: MCHC 32 % (30-34) 08/09/21 22:02 RDW 13.6 % (13.2-15.2) 08/09/21 22:02 Plt Count 298 K/mm3 (140-440) 08/09/21 22:02 Lymph % (Auto) 42.9 % (13.4-35.0) H 08/09/21 22: [place] % (Auto) 8.3 % (0.0-7.3) H 08/09/21 22:02 Eos % (Auto) 1.5 % (0.0-4.3) 08/09/21 22: Baso % (Auto) 0.6 % (0.0-1.8) 08/09/21 22:02 Lymph # (Auto) 3.3 K/mm3 (1.2-5.4) 08/09/21 22:02 [place] # (Auto) 0.6 K/mm3 (0.0-0.8) 08/09/21 22: Eos # (Auto) 0.1 K/mm3 (0.0-0.4) 08/09/21 22: Baso # (Auto) 0.0 K/mm3 (0.0-0.1) 08/09/21 22:02 Seg Neutrophils % 46.7 % (40.0-70.0) 08/09/21 22: Seg Neutrophils # 3.6 K/mm3 (1.8-7.7) 08/09/21 22:02 ESR 13 mm/Hr (0-20) 08/10/21 15:03 PT 14.5 Sec. (12.2-14.9) 08/09/21 22:02 INR 1.02 (0.87-1.13) 08/09/21 22:02 APTT 28.7 Sec. (24.2-36.6) 08/09/21 22:02 Thrombin Time 18.6 Sec. (15.1-19.6) 08/09/21 22:02 Sodium 136 mmol/L (137-145) L 08/09/21 22:02 Potassium 4.2 mmol/L (3.6-5.0) 08/09/21 22:02 Chloride 105.5 mmol/L (98-107) 08/09/21 22:02 Carbon Dioxide 21 mmol/L (22-30) L 08/09/21 22:02 Anion Gap 14 mmol/L 08/09/21 22:02 BUN 19 mg/dL (7-17) H 08/09/21 22:02 Creatinine 0.7 mg/dL (0.6-1.2) 08/09/21 22:02 Estimated GFR > 60 ml/min 08/09/21 22:02 BUN/Creatinine Ratio 27 % 08/09/21 22:02 Glucose 92 mg/dL (65-100) 08/09/21 22:02 POC Glucose 82 mg/dL (70-105) 08/09/21 22:16 Calcium 8.5 mg/dL (8.4-10.2) 08/11/21 05:29 Phosphorus 4.10 mg/dL (2.5-4.5) 08/11/21 05:29 Magnesium 2.10 mg/dL (1.7-2.3) 08/11/21 05:29 Total Bilirubin 0.20 mg/dL (0.1-1.2) 08/09/21 22:02 Direct Bilirubin < 0.2 mg/dL (0-0.2) 08/09/21 22:02 Indirect Bilirubin 0.0 mg/dL 08/09/21 22:02 AST 16 units/L (5-40) 08/09/21 22:02 ALT 15 units/L (7-56) 08/09/21 22:02 Alkaline Phosphatase 70 units/L (35-129) 08/09/21 22:02 Ammonia 41.0 umol/L (25-60) 08/09/21 22:02 Troponin T < 0.010 ng/mL (0.00-0.029) 08/10/21 00:27 Total Protein 6.5 g/dL (6.3-8.2) 08/09/21 22:02 Albumin 3.6 g/dL (3.9-5) L 08/09/21 22:02 Albumin/Globulin Ratio 1.2 % 08/09/21 22:02 Triglycerides 95 mg/dL (2-149) 08/10/21 00:34 Cholesterol 173 mg/dL (50-199) 08/10/21 00:34 LDL Cholesterol Direct 103 mg/dL (50-130) 08/10/21 00:34 HDL Cholesterol 55 mg/dL (40-59) 08/10/21 00:34 Cholesterol/HDL Ratio 3.14 % 08/10/21 00:34 TSH 2.020 mlU/mL (0.270-4.200) 08/09/21 22:02 Salicylates < 0.3 mg/dL (2.8-20.0) L 08/09/21 22:02 Acetaminophen 5.0 ug/mL (10.0-30.0) L 08/09/21 22:02 Plasma/Serum Alcohol < 0.01 % (0-0.07) 08/09/21 22:02 Microbiology: Microbiology 08/09/21 22:11 Peripheral/Venous Blood Culture - Preliminary NO GROWTH AFTER 24 HOURS 08/09/21 22:02 Peripheral/Venous Blood Culture - Preliminary NO GROWTH AFTER 24 HOURS Pepper/IV: Voiding Method Toilet Active Medications - Current Medications Current Medications: Generic Name Dose Route Start Last Admin Trade Name Freq PRN Reason Stop Dose Admin Acetaminophen 650 mg 08/10/21 00:18 08/10/21 06:36 Acetaminophen 325 Mg Tab PO 650 mg Q4H PRN Administration Pain MILD(1-3)/Fever >100.5/ROCHA Albuterol 2.5 mg 08/10/21 00:18 Albuterol 2.5 Mg/3 Ml Nebu IH Q4HRT PRN Shortness Of Breath Albuterol/Ipratropium 1 ampul 08/10/21 02:00 08/11/21 09:12 Ipratropium/Albuterol Sulfate 3 Ml Ampul.Neb IH 1 ampul Q6HRT BRANDON Administration Aspirin 81 mg 08/10/21 13:00 08/11/21 10:16 Aspirin 81 Mg Tab Chew PO 81 mg QDAY BRANDON Administration Atorvastatin Calcium 40 mg 08/10/21 22:00 08/10/21 21:50 Atorvastatin 40 Mg Tab PO 40 mg QHS BRANDON Administration Famotidine 20 mg 08/10/21 10:00 08/11/21 10:16 Famotidine 20 Mg/2 Ml Inj IV 20 mg BID BRANDON Administration Heparin Sodium (Porcine) 5,000 unit 08/10/21 10:00 08/11/21 10:16 Heparin 5,000 Unit/1 Ml Vial SUB-Q 5,000 unit Q12HR BRANDON Administration Hydromorphone HCl 0.5 mg 08/10/21 00:18 08/10/21 12:22 Hydromorphone 1 Mg/1 Ml Inj IV 0.5 mg Q3H PRN Administration Pain , Severe (7-10) Dextrose/Sodium Chloride 1,000 mls @ 100 mls/hr 08/10/21 01:00 08/10/21 21:51 D5ns IV 100 mls/hr DIRECT BRANDON Administration Morphine Sulfate 2 mg 08/10/21 00:18 08/11/21 07:57 Morphine 2 Mg/1 Ml Inj IV 2 mg Q4H PRN Administration Pain, Moderate (4-6) Ondansetron HCl 4 mg 08/10/21 00:18 08/10/21 21:50 Ondansetron 4 Mg/2 Ml Inj IV 4 mg Q8H PRN Administration Nausea And Vomiting Sodium Chloride 10 ml 08/10/21 10:00 08/11/21 10:17 Sodium Chloride 0.9% 10 Ml Flush Syringe IV 10 ml BID BRANDON Administration Sodium Chloride 10 ml 08/10/21 00:18 Sodium Chloride 0.9% 10 Ml Flush Syringe IV PRN PRN LINE FLUSH
[2021-08-11] MEDS: ACETAMINOPHEN 325 MG TAB PO PRN (22:07)
[2021-08-12] MEDS: IPRATROPIUM/ALBUTEROL SULFATE 3 ML AMPUL.NEB IH SCH ×4 (03:21→19:34)
--- NOTE | 2021-08-12 09:39 | Progress Note ---
Assessment and Plan Assessment and plan: #Left-sided weakness and blurry vision. CVA and TIA have been ruled out. Brain MRI with and without contrast negative. Brain MRA negative. CT of the head and neck negative. ESR normal. ZIYAD pending. Echo showed normal EF of 60 to 65% PT/OT/ST evaluation pending. Continue aspirin and Lipitor per neurology's recommendation. Continue telemetry monitoring. Neurologist input appreciated. #Left sided abdominal pain-resolved Resolved. Continue current analgesic. CT abdomen pelvis unremarkable. Continue current diet. #HTN (hypertension) Controlled without medication. Continue monitoring on as needed IV hydralazine. #DVT prophylaxis On subcu heparin. #Advanced care planning -Disease education conducted, care plan discussed, diagnoses discussed, prognosis discussed, and patient acknowledges understanding with care plan -Time: +30 minutes #Discharge planning -Physical therapy recommending acute rehab. Also recommended discharge with cane. -Patient is currently self-pay. Will discuss options with case management. Pending possible discharge home tomorrow. Disposition Plan: Possible discharge home tomorrow. Total Time Spent with Patient (Minutes): 30 minutes History Interval history: No acute events overnight. Hospitalist Physical - Constitutional Vitals: Temp Pulse Resp BP Pulse Ox 98.7 F 62 18 112/74 96 08/11/21 21:33 08/12/21 08:13 08/12/21 08:12 08/12/21 08:13 08/12/21 08:38 General appearance: Present: no acute distress, well-nourished - EENT Eyes: Present: PERRL, EOM intact ENT: hearing intact, clear oral mucosa, dentition normal - Neck Neck: Present: supple, normal ROM - Respiratory Respiratory effort: normal Respiratory: bilateral: CTA - Cardiovascular Rhythm: regular Heart Sounds: Present: S1 & S2 - Extremities Extremities: no ischemia, pulses intact, pulses symmetrical, No edema, normal temperature, normal color Peripheral Pulses: within normal limits - Abdominal General gastrointestinal: soft, non-tender, non-distended, normal bowel sounds - Integumentary Integumentary: Present: clear, warm, dry - Psychiatric Psychiatric: appropriate mood/affect, memory intact, cooperative - Neurologic Neurologic: CNII-XII intact, focal deficits (Weakness of left upper and lower extremity (4/5 strength)) - Allied Health Allied health notes reviewed: nursing HEART Score - HEART Score Troponin: Troponin T < 0.010 ng/mL (0.00-0.029) 08/10/21 00:27 Results - Labs CBC & Chem 7: 08/09/21 22:02 08/09/21 22:02 Labs: Laboratory Last Values WBC 7.7 K/mm3 (4.5-11.0) 08/09/21 22:02 RBC 4.10 M/mm3 (3.65-5.03) 08/09/21 22:02 Hgb 12.0 gm/dl (10.1-14.3) 08/09/21 22:02 Hct 37.2 % (30.3-42.9) 08/09/21 22:02 MCV 91 fl (79-97) 08/09/21 22:02 MCH 29 pg (28-32) 08/09/21 22:02 MCHC 32 % (30-34) 08/09/21 22:02 RDW 13.6 % (13.2-15.2) 08/09/21 22:02 Plt Count 298 K/mm3 (140-440) 08/09/21 22:02 Lymph % (Auto) 42.9 % (13.4-35.0) H 08/09/21 22:02 [place] % (Auto) 8.3 % (0.0-7.3) H 08/09/21 22:02 Eos % (Auto) 1.5 % (0.0-4.3) 08/09/21 22:02 Baso % (Auto) 0.6 % (0.0-1.8) 08/09/21 22:02 Lymph # (Auto) 3.3 K/mm3 (1.2-5.4) 08/09/21 22:02 [place] # (Auto) 0.6 K/mm3 (0.0-0.8) 08/09/21 22:02 Eos # (Auto) 0.1 K/mm3 (0.0-0.4) 08/09/21 22:02 Baso # (Auto) 0.0 K/mm3 (0.0-0.1) 08/09/21 22:02 Seg Neutrophils % 46.7 % (40.0-70.0) 08/09/21 22:02 Seg Neutrophils # 3.6 K/mm3 (1.8-7.7) 08/09/21 22:02 ESR 13 mm/Hr (0-20) 08/10/21 15:03 PT 14.5 Sec. (12.2-14.9) 08/09/21 22:02 INR 1.02 (0.87-1.13) 08/09/21 22:02 APTT 28.7 Sec. (24.2-36.6) 08/09/21 22:02 Thrombin Time 18.6 Sec. (15.1-19.6) 08/09/21 22:02 Sodium 136 mmol/L (137-145) L 08/09/21 22:02 Potassium 4.2 mmol/L (3.6-5.0) 08/09/21 22:02 Chloride 105.5 mmol/L (98-107) 08/09/21 22:02 Carbon Dioxide 21 mmol/L (22-30) L 08/09/21 22:02 Anion Gap 14 mmol/L 08/09/21 22:02 BUN 19 mg/dL (7-17) H 08/09/21 22:02 Creatinine 0.7 mg/dL (0.6-1.2) 08/09/21 22:02 Estimated GFR > 60 ml/min 08/09/21 22:02 BUN/Creatinine Ratio 27 % 08/09/21 22:02 Glucose 92 mg/dL (65-100) 08/09/21 22:02 POC Glucose 82 mg/dL (70-105) 08/09/21 22:16 Calcium 8.5 mg/dL (8.4-10.2) 08/11/21 05:29 Phosphorus 4.10 mg/dL (2.5-4.5) 08/11/21 05:29 Magnesium 2.10 mg/dL (1.7-2.3) 08/11/21 05:29 Total Bilirubin 0.20 mg/dL (0.1-1.2) 08/09/21 22:02 Direct Bilirubin < 0.2 mg/dL (0-0.2) 08/09/21 22:02 Indirect Bilirubin 0.0 mg/dL 08/09/21 22:02 AST 16 units/L (5-40) 08/09/21 22:02 ALT 15 units/L (7-56) 08/09/21 22:02 Alkaline Phosphatase 70 units/L (35-129) 08/09/21 22:02 Ammonia 41.0 umol/L (25-60) 08/09/21 22:02 Troponin T < 0.010 ng/mL (0.00-0.029) 08/10/21 00:27 Total Protein 6.5 g/dL (6.3-8.2) 08/09/21 22:02 Albumin 3.6 g/dL (3.9-5) L 08/09/21 22:02 Albumin/Globulin Ratio 1.2 % 08/09/21 22:02 Triglycerides 95 mg/dL (2-149) 08/10/21 00:34 Cholesterol 173 mg/dL (50-199) 08/10/21 00:34 LDL Cholesterol Direct 103 mg/dL (50-130) 08/10/21 00:34 HDL Cholesterol 55 mg/dL (40-59) 08/10/21 00:34 Cholesterol/HDL Ratio 3.14 % 08/10/21 00:34 TSH 2.020 mlU/mL (0.270-4.200) 08/09/21 22:02 Salicylates < 0.3 mg/dL (2.8-20.0) L 08/09/21 22:02 Acetaminophen 5.0 ug/mL (10.0-30.0) L 08/09/21 22:02 Plasma/Serum Alcohol < 0.01 % (0-0.07) 08/09/21 22:02 Microbiology: Microbiology 08/09/21 22:11 Peripheral/Venous Blood Culture - Preliminary NO GROWTH AFTER 48 HOURS 08/09/21 22:02 Peripheral/Venous Blood Culture - Preliminary NO GROWTH AFTER 48 HOURS Pepper/IV: Voiding Method Toilet Active Medications - Current Medications Current Medications: Generic Name Dose Route Start Last Admin Trade Name Freq PRN Reason Stop Dose Admin Acetaminophen 650 mg 08/10/21 00:18 08/11/21 22:07 Acetaminophen 325 Mg Tab PO 650 mg Q4H PRN Administration Pain MILD(1-3)/Fever >100.5/ROCHA Albuterol 2.5 mg 08/10/21 00:18 Albuterol 2.5 Mg/3 Ml Nebu IH Q4HRT PRN Shortness Of Breath Albuterol/Ipratropium 1 ampul 08/10/21 02:00 08/12/21 08:12 Ipratropium/Albuterol Sulfate 3 Ml Ampul.Neb IH 1 ampul Q6HRT BRANDON Administration Aspirin 81 mg 08/10/21 13:00 08/11/21 10:16 Aspirin 81 Mg Tab Chew PO 81 mg QDAY BRANDON Administration Atorvastatin Calcium 40 mg 08/10/21 22:00 08/11/21 22:16 Atorvastatin 40 Mg Tab PO 40 mg QHS BRANDON Administration Famotidine 20 mg 08/10/21 10:00 08/11/21 22:07 Famotidine 20 Mg/2 Ml Inj IV 20 mg BID BRANDON Administration Heparin Sodium (Porcine) 5,000 unit 08/10/21 10:00 08/11/21 22:07 Heparin 5,000 Unit/1 Ml Vial SUB-Q 5,000 unit Q12HR BRANDON Administration Hydromorphone HCl 0.5 mg 08/10/21 00:18 08/10/21 12:22 Hydromorphone 1 Mg/1 Ml Inj IV 0.5 mg Q3H PRN Administration Pain , Severe (7-10) Dextrose/Sodium Chloride 1,000 mls @ 100 mls/hr 08/10/21 01:00 08/10/21 21:51 D5ns IV 100 mls/hr DIRECT BRANDON Administration Morphine Sulfate 2 mg 08/10/21 00:18 08/11/21 07:57 Morphine 2 Mg/1 Ml Inj IV 2 mg Q4H PRN Administration Pain, Moderate (4-6) Ondansetron HCl 4 mg 08/10/21 00:18 08/10/21 21:50 Ondansetron 4 Mg/2 Ml Inj IV 4 mg Q8H PRN Administration Nausea And Vomiting Sodium Chloride 10 ml 08/10/21 10:00 08/11/21 22:07 Sodium Chloride 0.9% 10 Ml Flush Syringe IV 10 ml BID BRANDON Administration Sodium Chloride 10 ml 08/10/21 00:18 Sodium Chloride 0.9% 10 Ml Flush Syringe IV PRN PRN LINE FLUSH
[2021-08-12] MEDS: FAMOTIDINE 20 MG/2 ML INJ IV SCH ×2 (10:12→21:35)
[2021-08-12] MEDS: HEPARIN 5,000 UNIT/1 ML VIAL SUB-Q SCH ×2 (10:12→21:35)
[2021-08-12] MEDS: ASPIRIN 81 MG TAB CHEW PO SCH (10:12)
[2021-08-12] MEDS: ACETAMINOPHEN 325 MG TAB PO PRN ×2 (10:17→21:37)
[2021-08-13] MEDS: IPRATROPIUM/ALBUTEROL SULFATE 3 ML AMPUL.NEB IH SCH ×2 (02:50→10:00)
[2021-08-13] MEDS: HEPARIN 5,000 UNIT/1 ML VIAL SUB-Q SCH (10:45)
[2021-08-13] MEDS: ASPIRIN 81 MG TAB CHEW PO SCH (10:45)
--- NOTE | 2021-08-13 13:32 | Discharge Summary ---
Providers - Providers Date of Admission: 08/12/21 13:46 Date of discharge: 08/13/21 Attending physician: RONEL KOLB MD 08/10/21 00:18 Consult to Physician [CONS] Routine Comment: Consulting Provider: NIKOLAY HITCHCOCK Physician Instructions: Reason For Exam: cva 08/10/21 00:19 Occupational Therapy Evaluate and Treat [CONS] Routine Comment: Reason For Exam: Neuro deficits Physical Therapy Evaluation and Treat [CONS] Routine Comment: Reason For Exam: Neuro deficits 08/10/21 08:07 Speech Therapy Evaluation and Treat [CONS] Routine Reason For Exam: Stroke workup Primary care physician: VALET MANAGER Hospitalization Reason for admission: CVA versus TIA Condition: Stable Pertinent studies: Reviewed. Procedures: None. Hospital course: The patient is a 50-year-old female with history of prior CVA, hypertension, and diverticulitis who presented with left-sided numbness, weakness, that was concerning for CVA versus TIA. The patient was evaluated by neurology. The patient underwent imaging that was all found to be negative-CT head noncontrast, MRI brain with and without contrast, MRA brain, and TTE that was negative for PFO. Physical therapy was consulted and recommended subacute rehab; however, the patient is self-pay. Discussions were made with the patient, and the patient is being discharged with home health with physical therapy. The patient is medically cleared for discharge. Disposition: 01 HOME / SELF CARE / HOMELESS Final Discharge Diagnosis (Prints w/discharge instructions): Left-sided weakness, blurry vision, hypertension Time spent for discharge: 45 minutes Core Measure Documentation - Palliative Care Palliative Care/ Comfort Measures: Not Applicable - Core Measures Any of the following diagnoses?: stroke - VTE Discharge Requirements Deep Vein Thrombosis/Pulmonary Embolism Present on Admission: No Has pt received <5 days of overlap therapy or INR<2.0: No Anticoagulant overlap therapy prescribed at discharge: No Contraindication No Overlap Therapy order at DC: Not Indicated - Acute HI Discharge Requirements Aspirin at discharge: Yes Reason for no aspirin on DC: Medical contraindication MAME/ARB for LVSD if EF <40%: Not Applicable Beta cassandra at discharge: No Reason for no beta cassandra on DC: Medical contraindication (Not indicated) Statin for LDL = or >100 mg/dl on DC: Yes - Heart Failure Discharge Requirements MAME/ARB for LVSD if EF <40%: Not Applicable Beta cassandra at discharge: No Reason for no beta cassandra on DC: Medical contraindication (Not indicated) - Stroke Discharge Requirements Statin for LDL = or >70 mg/dl on DC: Yes Anticoag for atrial fib/atrial flutter: Not Applicable Antithrombotic for ischemic stroke: No Reason for no antithrombotic on DC: Not Indicated Exam - Constitutional Vitals: Temp Pulse Resp BP Pulse Ox 97.8 F 76 16 115/71 95 08/13/21 08:23 08/13/21 10:01 08/13/21 10:01 08/13/21 08:23 08/13/21 10:36 General appearance: Present: no acute distress, well-nourished - EENT Eyes: Present: PERRL, EOM intact ENT: hearing intact, clear oral mucosa, dentition normal - Neck Neck: Present: supple, normal ROM - Respiratory Respiratory effort: normal Respiratory: bilateral: CTA - Cardiovascular Rhythm: regular Heart Sounds: Present: S1 & S2 - Extremities Extremities: no ischemia, pulses intact, pulses symmetrical, No edema, normal temperature, normal color, Full ROM Peripheral Pulses: within normal limits - Abdominal General gastrointestinal: Present: soft, non-tender, non-distended, normal bowel sounds Female genitourinary: Present: deferred - Rectal Rectal Exam: deferred - Integumentary Integumentary: Present: clear, warm, dry - Musculoskeletal Musculoskeletal: left sided weakness - Psychiatric Psychiatric: appropriate mood/affect, intact judgment & insight, memory intact, cooperative - Neurologic Neurologic: CNII-XII intact, moves all extremities - Allied Health Allied health notes reviewed: nursing Plan Activity: advance as tolerated Diet: low salt Care Plan Goals: Patient safe for medical discharge. Assessment: Patient was admitted for work-up of CVA versus TIA. Neurology was consulted. All imaging (CT head noncontrast, MRI brain without contrast, MRA brain, and TTE) were all found to be negative. The patient will be discharging home with home health physical therapy. Follow up with: PRIMARY MD MARLEN [Primary Care Provider] - 3-5 Days MIKAELA ROBERTSON MD [Staff Physician] - 14 Days (Establish PCP care) Prescriptions: AtorvaSTATin [Lipitor] 40 mg PO QHS #30 tablet Aspirin [Aspirin BABY CHEW TAB] 81 mg PO QDAY #30 tab.chew
[2021-08-13 16:54] VITALS: BP 119/88
[2021-08-13] MEDS ORDERED: FAMOTIDINE 20 MG TAB PO SCH (22:00)
[2021-08-14 22:53] LABS: ANA Screen, IFA Negative (Negative)
== END 2021-08-13 18:33 | disposition home health service (06) | DRG 125 ==
LOC: ED 21:29 → 4A 08-10 00:19 → OBSVTOIN 08-12 13:46
PROVIDERS: ADMIT Hospitalist; ATTEND Student in an Organized Health Care Education/Training Program
DX: H53.8 Other visual disturbances (principal); I69.351 Hemiplegia and hemiparesis following cerebral infarction affecting right dominant side; I10 Essential (primary) hypertension; Z20.822 Contact with and (suspected) exposure to COVID-19; E86.0 Dehydration
CPT/HCPCS: 36415; 70450; 70496; 70498; 70544; 70551; 70552; 71045; 74176; 80048; 80061; 80076; 80320; 82140; 82310; 82962; 83735; 84100; 84443; 84484; 85025; 85610; 85652; 85670; 85730; 86038; 87040; 87076; 87086; 90686; 93005; 93306; 94640; 99291; G0378; J3490; Q0162; A9575; G0480; J1170; J1644; J2270; J2405; J7030; J7042; Q9967; U0003